=== PATIENT | male | born 1990 | race Caucasian/White ===

== ENCOUNTER 2017-05-24 15:07 | Emergency (ER) | payer OTHER ==
[~2017-05-24 15:07] MED LIST: CLINDAMYCIN; METHOCARBAMOL500 M2 PO; NAPROSYN500 M1 PO; PERCOCET 5-3251 EACH PO; PREDNISONE; PRINIVIL10 M1 PO; RIFADIN300 M1 PO; WELLBUTRIN SR150 M2 PO
[2017-05-24] MEDS ORDERED: FLAGYL500 M1 PO (16:35)
== END 2017-05-24 17:11 ==
LOC: EDMED 15:07
DX: A04.7 Enterocolitis due to Clostridium difficile (principal); I10 Essential (primary) hypertension; Z86.11 Personal history of tuberculosis; Z87.891 Personal history of nicotine dependence; Z79.899 Other long term (current) drug therapy